=== PATIENT | female | born 1945 | race Caucasian/White ===

== ENCOUNTER 2024-11-23 14:26 | Emergency (ER) | payer MEDICARE ==
--- NOTE | 2024-11-23 14:52 | ED ---
Wound/Laceration HPI - General Chief Complaint: Wound/Laceration Stated Complaint: fell R knee injury Time Seen by Provider: 11/23/24 14:38 Source: patient, RN notes reviewed Mode of arrival: wheelchair Limitations: no limitations - History of Present Illness Initial Comments: This is an 79-year-old female with history of hyperlipidemia presenting for righ t knee injury/pain (09/16) about 1 hour ago. Patient states she was traveling downstairs when she struck her knee onto the edge of a wooden step. Patient states she is able to ambulate following the incident. States she is unsure of tetanus vaccination status. Denies distal paresthesia or color change. Denies striking head, headache, neck pain, loss of consciousness, other other injury. Patient would later note some discoloration pain in her left 2nd and 3rd digits with some ecchymosis noted. Onset/Timin -: hour(s) Extremity Location: Right: Knee - Related Data Previous Rx's Medication Instructions Recorded Cephalexin [Keflex] 500 mg PO Q6HR 1 Days #40 cap 11/23/24 Allergies Allergy/AdvReac Type Severity Reaction Status Date / Time No Known Allergies Allergy Verified 11/23/24 14:37 Review of Systems ROS Statement: Those systems with pertinent positive or pertinent negative responses have been documented in the HPI. ROS Other: All systems not noted in ROS Statement are negative. Past Medical History Past Medical History: Hyperlipidemia History of Any Multi-Drug Resistant Organisms: None Reported Past Surgical History: Orthopedic Surgery Additional Past Surgical History / Comment(s): left wrist Past Psychological History: No Psychological Hx Reported Smoking Status: Never smoker Past Alcohol Use History: None Reported Past Drug Use History: None Reported General Exam Limitations: no limitations General appearance: alert, in no apparent distress Head exam: Present: atraumatic, normocephalic, normal inspection Eye exam: Present: normal appearance, PERRL, EOMI. Absent: scleral icterus, conjunctival injection, periorbital swelling ENT exam: Present: normal exam, mucous membranes moist Neck exam: Present: normal inspection. Absent: tenderness, meningismus, lymphadenopathy Respiratory exam: Present: normal lung sounds bilaterally. Absent: respiratory distress, wheezes, rales, rhonchi, stridor Cardiovascular Exam: Present: regular rate, normal rhythm, normal heart sounds. Absent: systolic murmur, diastolic murmur, rubs, gallop, clicks GI/Abdominal exam: Present: soft, normal bowel sounds. Absent: distended, tenderness, guarding, rebound, rigid Extremities exam: Present: full ROM, tenderness (Positive right lateral tibial plateau tenderness without obvious crepitus or deformity. Positive left third toe TTP with mild ecchymosis. Negative crepitus, deformity, paresthesia.), normal capillary refill, other (7.5 cm deep horizontal laceration across right tibial plateau without foreign body, significant bleeding. Distal neurovascular and motor function intact. Posterior tibialis pulse +2. Plantar/dorsiflexion intact. Straight leg raise normal with strength 5/5. ). Absent: pedal edema, joint swelling, calf tenderness Back exam: Present: normal inspection Neurological exam: Present: alert, oriented X3, CN II-XII intact Psychiatric exam: Present: normal affect, normal mood Skin exam: Present: warm, dry, intact, normal color. Absent: rash Course Vital Signs 11/23/24 11/23/24 14:30 18:04 Temperature 97.7 F 97.9 F Pulse Rate 81 80 Respiratory 17 16 Rate Blood Pressure 194/92 168/72 O2 Sat by Pulse 96 96 Oximetry Procedures - Laceration Laceration #1 Consent Obtained: verbal consent Indication: laceration Site: lower extremity Size (cm): 8 Description: linear Depth: involves muscle layer Anesthetic Used: lidocaine 1% Anesthesia Technique: local infiltration Amount (mls): 8 Pre-repair: wound explored, irrigated extensively, wound margins revised (Scalpel used to remove blackened/necrotic laceration edges on distal aspect of laceration.) Type of Sutures: nylon Size of Sutures: 6-0 Number of Sutures: 17 Technique: running Patient Tolerated Procedure: well, no complications Medical Decision Making - Medical Decision Making Was pt. sent in by a medical professional or institution (, PA, PRESENTATION TEAM MEMBER, urgent care, hospital, or custodial...) When possible be specific @ -No Did you speak to anyone other than the patient for history (EMS, parent, family, police, friend...)? What history was obtained from this source @ -No Did you review nursing and triage notes (agree or disagree)? Why? @ -I reviewed and agree with nursing and triage notes Were old charts reviewed (outside hosp., previous admission, EMS record, old EKG, old radiological studies, urgent care reports/EKG's, custodial records)? Report findings @ -No old charts were reviewed Differential Diagnosis (chest pain, altered mental status, abdominal pain women, abdominal pain men, vaginal bleeding, weakness, fever, dyspnea, syncope, headache, dizziness, GI bleed, back pain, seizure, CVA, palpatations, mental health, musculoskeletal)? @ -Differential Musculoskeletal Muscular strain, contusion, ligament sprain, fracture, arthritis, septic arthritis, bursitis, cellulitis, muscle spasm, nerve compression, DVT, arterial occlusion, herpes zoster, electrolyte abnormality, tumor.... This is not meant to be in all inclusive list EKG interpreted by me (3pts min.). @ -Not done X-rays interpreted by me (1pt min.). 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 CT interpreted by me (1pt min.). @ -None done U/S interpreted by me (1pt. min.). @ -None done What testing was considered but not performed or refused? (CT, X-rays, U/S, labs)? Why? @ -Patient declined x-ray of left toes What meds were considered but not given or refused? Why? @ -None Did you discuss the management of the patient with other professionals (professionals i.e. , PA, PRESENTATION TEAM MEMBER, lab, RT, psych nurse, social work administrator, research program coordinator, teacher, sea air land officer, rn case manager)? Give summary @ -No Was smoking cessation discussed for >3mins.? @ -No Was critical care preformed (if so, how long)? @ -No Were there social determinants of health that impacted care today? How? (Homelessness, low income, unemployed, alcoholism, drug addiction, transportation, low edu. Level, literacy, decrease access to med. care, alf, rehab)? @ -No Was there de-escalation of care discussed even if they declined (Discuss DNR or withdrawal of care, Hospice)? DNR status @ -No What co-morbidities impacted this encounter? (DM, HTN, Smoking, COPD, CAD, Cancer, CVA, ARF, Chemo, Hep., AIDS, mental health diagnosis, sleep apnea, morbid obesity)? @ -None Was patient admitted / discharged? Hospital course, mention meds given and route, prescriptions, significant lab abnormalities, going to OR and other pertinent info. 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 Patient provided IM tetanus and provided IM Toradol and p.o. Tylenol for pain. Dr. Block personally inspected laceration ensuring no intrusion into right knee joint space. Laceration irrigated copiously with 2 L of normal saline and laceration sutured under sterile conditions followed by bandaging. Patient provided initial dose of p.o. Keflex with additional tablet for use later tonight. Left 2nd and 3rd toes desmond taped. Remaining regimen sent to patient's pharmacy. Suture care ins tructions conveyed to patient and advised return to medical facility for removal and 10-14 days. Discussed patient with Dr. Block. Undiagnosed new problem with uncertain prognosis? @ -No Drug Therapy requiring intensive monitoring for toxicity (Heparin, Nitro, Insulin, Cardizem)? @ -No Were any procedures done? @ -Laceration sutured under sterile conditions after copious irrigation with 2 L of normal saline. See procedure note. Left 2nd and 3rd toes desmond taped. Diagnosis/symptom? @ -Right knee laceration following fall Acute, or Chronic, or Acute on Chronic? @ -Acute Uncomplicated (without systemic symptoms) or Complicated (systemic symptoms)? @ -Uncomplicated Side effects of treatment? @ -No Exacerbation, Progression, or Severe Exacerbation? @ -No Poses a threat to life or bodily function? How? (Chest pain, [place], [place], pneumonia, PE, COPD, DKA, ARF, appy, cholecystitis, CVA, Diverticulitis, Homicidal, Suicidal, threat to staff... and all critical care pts) @ -No Disposition Clinical Impression: Laceration Disposition: HOME SELF-CARE Condition: Fair Instructions (If sedation given, give patient instructions): Care For Your Stitches (ED) Additional Instructions: Keep suture site clean with antibacterial soap and water and dressing change at least twice daily. Follow-up with PCP/orthopedics in the next 24-48 hours for ongoing management. Prescriptions: Cephalexin [Keflex] 500 mg PO Q6HR 1 Days #40 cap Is patient prescribed a controlled substance at d/c from ED?: No Referrals: Elizabet Alcantar DO [Primary Care Provider] - 1-2 days [facility] [Provider Group] - 1-2 days [facility] [Provider Group] - 1-2 days Time of Disposition: 17:37
[2024-11-23] MEDS: DIPH,PERTUS(ACELL)TETVAC-LF 0.5 ML VIAL IM ONE (15:12)
[2024-11-23] MEDS: KETOROLAC 15 MG/ML 1 ML VIAL IM STA (15:13)
[2024-11-23] MEDS: ACETAMINOPHEN TAB 325 MG TAB PO STA (15:19)
--- NOTE | 2024-11-23 15:42 | XR ---
EXAMINATION TYPE: XR knee complete RT DATE OF EXAM: 11/23/2024 3:38 PM COMPARISON: None available. CLINICAL INDICATION: Female, 79 years old with history of Deep laceration, fall into step; PHH, pain TECHNIQUE: XR knee complete RT views submitted.. FINDINGS: No acute fracture or dislocation. Large soft tissue laceration in the pretibial region. No sizable suprapatellar joint effusion. Mild to moderate right knee tricompartmental degenerative osteo arthritic IMPRESSION: Large soft tissue laceration defect without acute fracture or dislocation. [facility], , 11/23/2024 3:40 PM
[2024-11-23] MEDS: CEPHALEXIN 500 MG CAP PO STA ×2 (16:09→17:46)
[2024-11-23] MEDS: LIDOCAINE 1% INJ 10MG/ML (20 ML MDV) SQ ONE (16:09)
[2024-11-23 18:05] VITALS: BP 168/72; PULSE 80; RESP 16; TEMP 97.9
== END 2024-11-23 18:05 | disposition home or self-care (01) ==
LOC: EC 14:26
DX: S81.011A Laceration without foreign body, right knee, initial encounter (principal); Z23 Encounter for immunization; W22.8XXA Striking against or struck by other objects, initial encounter
CPT/HCPCS: 73562; 90715; 99283; 96372; 90471; 12001; J2003; J1885